=== PATIENT | female | born 1975 | race African-American/Black ===

== ENCOUNTER 2016-09-22 18:07 | Emergency (ER) | payer MEDICAID, OTHER ==
[~2016-09-22 18:07] MED LIST: HYDR-3533 PO
[2016-09-22 18:09] VITALS: BP 137/96; PULSE 69; RESP 20; TEMP 98.7; O2SAT 98
== END 2016-09-22 19:49 | disposition left against medical advice (07) ==
LOC: NED 18:07
DX: H92.02 Otalgia, left ear (principal); Z53.21 Procedure and treatment not carried out due to patient leaving prior to being seen by health care provider
CPT/HCPCS: 99281

== ENCOUNTER 2017-05-03 11:09 | Emergency (ER) | payer SELFPAY ==
[2017-05-03 11:11] VITALS: BP 148/90; PULSE 101; RESP 14; TEMP 98.4; O2SAT 95
[2017-05-03] MEDS ORDERED: BENZ100 PO (13:14)
[2017-05-03] MEDS ORDERED: AMOX875T PO (13:14)
--- NOTE | 2017-05-03 13:17 | PD ---
HPI Chief Complaint: Cold / Flu Symptoms Time Seen by Provider: 12:50 Travel History International Travel<30 days: No Contact w/Intl Traveler<30days: No Traveled to known affect area: No History of Present Illness HPI 42-year-old female presents for evaluation of cough, congestion, sore throat, left ear pain. Symptoms started 4 days ago. Symptoms are mild, no aggravating or relieving factors. Denies any fevers, chills, rash, recent travel. No sick contacts. No other complaints at this time. She is not using any medication for symptom relief. PFSH Past Medical History Asthma: Yes Blood Disorders: Yes (sickle cell) Cancer: No Cardiovascular Problems: Yes (HTN) Diabetes: No Diminished Hearing: No Hepatitis: No Hiatal Hernia: No Hypertension: Yes (UNTREATED) Musculoskeletal: Yes (STATES FRACTURE TO LEFT ARM 08/14/05) Respiratory: Yes (ASTHMA) Sickle Cell Disease: Yes Thyroid Disease: No : 5 Para: 4 Miscarriage: 1 Tubal Ligation: Yes (1994) Past Surgical History Abdominal Surgery: Yes ( X 1) Cardiac Surgery: No Section: Yes (X 1) Ear Surgery: No Endocrine Surgery: No Eye Surgery: No Genitourinary Surgery: No Gynecologic Surgery: Yes (;TUBAL LIGATION) Oral Surgery: No Thoracic Surgery: No Other Surgery: Yes Social History Alcohol Use: Yes (DAILY) Tobacco Use: Yes (2 PPD) Substance Use: No Allergies-Medications (Allergen,Severity, Reaction): Coded Allergies: No Known Allergies (Verified Adverse Reaction, Unknown, 05/03/17) Reported Meds & Prescriptions Reported Meds & Active Scripts Active Tessalon Perles (Benzonatate) 100 Mg Cap 100 Mg PO TID PRN Amoxicillin 875 Mg Tab 875 Mg PO BID 10 Days Review of Systems Except as stated in HPI: all other systems reviewed are Neg Physical Exam Narrative GENERAL: Well-nourished female in no acute distress SKIN: Warm and dry. HEAD: Atraumatic. Normocephalic. EYES: Pupils equal and round. No scleral icterus. No injection or drainage. ENT: No nasal bleeding or discharge. Mucous membranes pink and moist. The left tympanic membrane is mildly erythematous. NECK: Trachea midline. No JVD. CARDIOVASCULAR: Regular rate and rhythm. No murmur appreciated. RESPIRATORY: No accessory muscle use. Clear to auscultation. Breath sounds equal bilaterally. Data Data Last Documented VS Vital Signs Date Time Temp Pulse Resp B/P (MAP) Pulse Ox O2 Delivery O2 Flow Rate FiO2 05/03/17 11:11 98.4 101 14 148/90 (109) 95 Orders Orders Influenzae A/B Antigen (05/03/17 11:23) Group A Rapid Strep Screen (05/03/17 11:23) Strep Culture (Group A) (05/03/17 11:25) Ed Discharge Order (05/03/17 13:15) MDM Medical Decision Making Medical Screen Exam Complete: Yes Emergency Medical Condition: Yes Medical Record Reviewed: Yes Differential Diagnosis Otitis media, sinusitis, bronchitis, pneumonia, pharyngitis Narrative Course The patient appears well. Influenza antigen rapid strep screens were performed in triage and they are negative. She does have evidence of left otitis media. She will be discharged with amoxicillin and Tessalon. Diagnosis Primary Impression: Upper respiratory infection Additional Impression: Left otitis media Additional Instructions: Medication as prescribed. Follow-up with primary care. Return for any emergent medical conditions. Med/Other Pt SpecificInfo: Prescription(s) given Scripts Benzonatate (Tessalon Perles) 100 Mg Cap 100 MG PO TID Y for COUGH, #31 CAP 0 Refills Prov: Jaime Ybarra MD 05/03/17 Amoxicillin (Amoxicillin) 875 Mg Tab 875 MG PO BID for Infection for 10 Days, #20 TAB 0 Refills Prov: Jaime Ybarra MD 05/03/17 Disposition: 01 DISCHARGE HOME Condition: Stable Trey Cole May 03, 2017 13:17
== END 2017-05-03 13:25 | disposition home or self-care (01) ==
LOC: NEPK 11:09
DX: J06.9 Acute upper respiratory infection, unspecified (principal); H66.92 Otitis media, unspecified, left ear; J02.9 Acute pharyngitis, unspecified; J45.909 Unspecified asthma, uncomplicated; I10 Essential (primary) hypertension; Z72.0 Tobacco use
CPT/HCPCS: 87081; 87804; 87880; 99283